=== PATIENT | male | born 1960 | race Caucasian/White ===

== ENCOUNTER 2020-04-16 20:26 | Emergency (ER) | payer OTHER ==
[~2020-04-16] VITALS: Ht 180.3 cm; Wt 83.9 kg
[2020-04-16] MEDS ORDERED: LEVAQUIN500 MG (20:35)
[2020-04-16] MEDS ORDERED: ALTACE10 MG (20:35)
[2020-04-16] MEDS ORDERED: SYNTHROID50 MCG (20:35)
== END 2020-04-17 00:26 | disposition home or self-care (01) ==
LOC: ER 20:26
DX: K30 Functional dyspepsia (principal); R10.12 Left upper quadrant pain; R20.8 Other disturbances of skin sensation

== ENCOUNTER 2020-04-17 19:59 | Emergency (ER) | payer OTHER ==
[~2020-04-17] VITALS: Ht 180.3 cm; Wt 83.9 kg
[~2020-04-17 19:59] MED LIST: ALTACE10 MG; LEVAQUIN500 MG; SYNTHROID50 MCG
== END 2020-04-17 22:06 | disposition home or self-care (01) ==
LOC: ER 19:59
DX: R10.13 Epigastric pain (principal)

== ENCOUNTER 2023-06-17 09:27 | Emergency (ER) | payer OTHER ==
[~2023-06-17] VITALS: Ht 180.3 cm; Wt 77.1 kg
[2023-06-17] MEDS ORDERED: ALTACE10 MG (09:49)
[2023-06-17] MEDS ORDERED: FARYDAK10 MG PO (09:49)
[2023-06-17] MEDS ORDERED: CRESTOR10 MG PO (09:49)
== END 2023-06-17 13:02 | disposition home or self-care (01) ==
LOC: ER 09:27
DX: M16.11 Unilateral primary osteoarthritis, right hip (principal); E11.9 Type 2 diabetes mellitus without complications; I10 Essential (primary) hypertension